=== PATIENT | male | born 1995 | race Caucasian/White ===

== ENCOUNTER 2016-12-20 06:46 | Day surgery (SDC) | payer BC ==
[~2016-12-20 06:46] MED LIST: Buffered Lidocaine 0.9% SYRIN* 5 ML/SYR SYRINGE INTRADERM ONE
[2016-12-20] MEDS ORDERED: Lidocaine 1.5% EPI 1:200,000* 30 ML SDV ONE (06:59)
[2016-12-20] MEDS ORDERED: ceFAZolin 2 GM PREMIX (*) 2 GM/50 ML BAG IVPB ONE (06:59)
[2016-12-20] MEDS ORDERED: Buffered Lidocaine 0.9% SYRIN* 5 ML/SYR SYRINGE ONE (06:59)
[2016-12-20] MEDS ORDERED: Dexamethasone IV* 4 MG/ML 1 ML (4 MG) ONE (07:57)
[2016-12-20] MEDS ORDERED: Propofol* 10 MG/ML 20 ML BTL IV PUSH ONE ×2 (07:57→10:55)
[2016-12-20] MEDS ORDERED: fentaNYL* 50 MCG/ML 2 ML VIAL (100 MCG VIAL) ONE ×5 (07:58→12:55)
[2016-12-20] MEDS ORDERED: Midazolam* 1 MG/ML 5 ML VIAL (5 MG) ONE (07:58)
[2016-12-20] MEDS ORDERED: Bupivacaine 0.5% SDV PF* 30 ML VIAL ONE (08:30)
[2016-12-20] MEDS ORDERED: DiMENhydriNATE IV* 50 MG/ML VIAL IV PUSH PRN (08:40)
[2016-12-20] MEDS ORDERED: oxyCODONE TAB* 5 MG TAB PO PRN (08:40)
[2016-12-20] MEDS ORDERED: Scopolamine 1.5 mg* PATCH TRANSDERM PRN (08:40)
[2016-12-20] MEDS ORDERED: Ondansetron INJ* 2 MG/ML VIAL IV PRN (08:40)
[2016-12-20] MEDS ORDERED: HYDROmorphone INJ* 1 MG/ML CARPUJECT SYRINGE IV PRN (08:40)
[2016-12-20] MEDS ORDERED: Ondansetron INJ* 2 MG/ML VIAL ONE (08:48)
[2016-12-20] MEDS ORDERED: Ketorolac INJ* 30 MG/ML 1 ML VIAL ONE (08:48)
[2016-12-20] MEDS ORDERED: oxyCODONE TAB* 5 MG TAB ONE (12:51)
[2016-12-20] MEDS: fentaNYL* 50 MCG/ML 2 ML VIAL (100 MCG VIAL) IV PRN ×2 (12:55→13:00)
[2016-12-20 12:59] VITALS: BP 152/84
--- NOTE | 2016-12-20 14:06 | RAD ---
INDICATION: Right ankle ORIF, S 82.61XD COMPARISONS: December 11, 2016 TECHNIQUE: Fluoroscopy was provided for a surgical procedure. Total fluoroscopy time is: 84.2 seconds FINDINGS: Spot images demonstrate internal fixation of the right ankle IMPRESSION: FLUOROSCOPY WAS PROVIDED FOR A SURGICAL PROCEDURE CPT II Codes: 6045F
--- NOTE | 2016-12-21 19:22 | OP ---
OPERATIVE REPORT: DATE OF OPERATION: 12/20/16 DATE OF : [birth year] SURGEON: Dat Panchal MD AQUATIC SCIENTIST: MAMI Limon A physician physical laboratory assistant was required for the length of the case for positioning, instrumentation, and retraction. ANESTHESIOLOGIST: Primo Crawford MD ANESTHESIA: General anesthesia, LMA and local anesthesia, 10 cc of 1:1 ratio of 1.5% lidocaine with epinephrine and 0.5% Marcaine without epinephrine. PRE-OP DIAGNOSES: 1. Right ankle lateral malleolus fracture. 2. Right ankle anterior tibiofibular ligament tear, possible syndesmotic instability. 3. Right ankle bony avulsion fracture, distal tip, including anterior talofibular ligament. 4. Demetrius fracture, posterior aspect, medial malleolus, right ankle. 5. Possible right ankle fracture dislocation. POST-OP DIAGNOSES: 1. Right ankle lateral malleolus fracture. 2. Right ankle anterior tibiofibular ligament tear with syndesmotic instability. 3. Right ankle bony avulsion fracture, distal tip, including anterior talofibular ligament. 4. Demetrius fracture, posterior aspect, medial malleolus, right ankle. 5. Possible right ankle fracture dislocation. OPERATIVE PROCEDURE: 1. Right ankle open reduction internal fixation lateral malleolus. 2. Right ankle open reduction internal fixation syndesmosis. 3. Right ankle repair of collateral ligament, specifically anterior talofibular ligament. 4. Removal of bony fragment, distal tip of lateral malleolus. ANTIBIOTICS: Ancef 2 g IV. IV FLUIDS: See anesthesia note. TOURNIQUET TIME: 120 minutes up, then 15 minutes down, then 44 minutes up at 300 mmHg. COMPLICATIONS: None. SPECIMEN: None. IMPLANTS: Synthes 10 hole one-third tubular plate filled with 3.5 mm cortical nonlocking screws and one 4.0 mm cancellous nonlocking screw. The cancellous nonlocking screw was the most distally placed through the plate. Across the fracture site, using lag technique were placed one 3.5 mm nonlocking screw and one 2.7 mm nonlocking screw. There was also a long 3.5 mm fully threaded screw , 60 mm in length that functioned as a syndesmotic screw. Also placed was a [employer] Gryphon double-loaded suture anchor in the distal tip of the lateral malleolus. 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 The patient sustained a twisting injury. There was obvious deformity to the ankle. I did not see this. An certified athletic trainer got to the villal[place] and reduced the ankle prior to my arrival on to the field. The certified athletic trainer described it as a fracture dislocation. Difficult to know for sure if it was a fracture dislocation or whether perhaps it was just a displaced ankle fracture. product trainer described it as a fracture dislocation. X-ray imaging demonstrated a Horton C fracture, comminuted, of the distal fibula. X- rays also demonstrated some likely instability of the syndesmosis, evidenced by medial clear space widening on gravity stress views in the office. Those gravity stress x-ray views also demonstrated a demetrius about the medial aspect of the ankle, likely representing a type of bony avulsion. Given the patient's high level of athletics, the severe energy involved with his injury, and the presence of that bony fracture fragment medially, I obtained an MRI scan of the right ankle. Right ankle MRI demonstrated a fracture of the lateral malleolus, distal fibula. It also demonstrated anterior tibiofibular ligament tear. It surprisingly did not show a deltoid ligament injury. It showed a small impaction fracture about the posterior aspect of the medial malleolus with a small demetrius of bone displaced that had been visible on x-ray. It provided more information, a greater clarity about a fracture fragment seen at the distal tip of the lateral malleolus on x-ray images. I had assumed that to be a chronic demetrius fragment from an old injury. However, radiologist read this as an acute injury. The fragment was long but thin, approximately 6 mm long from anterior to posterior. It appeared to be connected to the ATFL ligament and displaced anteriorly from a notch about the midpoint or even posterior on the lateral malleolus. Surprisingly, I did not see any bone edema about that fracture site , indicating possibly that this was a chronic injury sustained by the patient previously. The patient had had an ankle injury over the summer, twisted ankle that bothered him for a week. Patient opted for surgery. Patient had been placed into a splint in the emergency room and was eventually placed in a casting clinic with me with instructions to elevate the leg. Preoperatively, I detailed potential risks and complications of surgery including bleeding, infection, nerve or blood vessel injury, ankle pain, stiffness or arthritis, hardware complications. I discussed that likely the patient would need syndesmotic screws. I told him that I would take these out 10 weeks postoperatively. We discussed that not all syndesmotic screws are removed and that the literature has supported either removal or non-removal. I told him that it is my tendency to remove syndesmotic screws. Patient opted for surgery. DESCRIPTION OF PROCEDURE: Preoperative written consent. Operative extremity was marked in preoperative holding. The cast was bivalved in preoperative holding. A skin check showed wrinkling of medial and lateral ankle skin. Skin was intact. The hair about the skin incision laterally were shaved. The patient was brought back to the operating room and an LMA was placed with the patient in the supine position. A proximal thigh tourniquet was placed but not yet elevated. The right lower extremity was prepped with chlorhexidine and then ChloraPrep. Right lower extremity was draped. Surgical time was performed. Esmarch was applied and tourniquet was elevated to 300 mmHg. A lateral ankle approach skin incision was made, starting approximately 13 cm proximal with distal tip of the lateral malleolus and curving anteriorly distal to the distal tip of the lateral malleolus. Continued dissection through superficial subcutaneous tissue with a deep knife. I then continued my dissection with dissection scissors to bone. Fascia directly overlying bone and periosteum were incised longitudinally with a deep knife. I encountered fracture. Opened up fracture and debrided it with irrigation, rongeur and curette. There had been some shortening at the fracture site. Reduced fracture and placed 2 bone clamps to hold the main oblique fracture line in place. Using lag technique, placed a 3.5 mm fully threaded nonlocking screw from posterior to anterior. This held the reduction nicely. There was a butterfly fragment more proximally about the posterior aspect of the bone. This did not have to be done, but in order to hold the butterfly fragment nicely adjacent to bone and prevent it from being displaced posteriorly , I fixed this fragment using a 2.7 mm screw placed from anterior to posterior into the fragment. I did not use lag technique for this screw. I took several x-ray images using a C-arm showing excellent reduction. I then sized one-third tubular plates. I picked a 10-hole plate. I then contoured it appropriately. I placed it on the lateral aspect of the distal fibula and placed 1 nonlocking screw proximal and 1 distal to the fractures. I then brought C-arm images in and obtained AP mortise and lateral view showing excellent reduction of bone and excellent placement of hardware. I next placed 2 additional nonlocking screws proximal to the fractures. Then distal to the fracture, I placed a cancellous 4.0 mm screw in the distal most hole of the plate. I placed then 2 additional screws distal to the fracture site, 3.5 mm nonlocking. X-ray film showed excellent placement of hardware and reduction of the lateral malleolus fracture. I next determined the need for a syndesmosis screw. I performed external rotation stress test and cotton test. The cotton test more so than the external rotation stress test showed an increase in the tibiofibular clear space and a decrease in tibiofibular overlap. Medial clear space widening was less of a concern. Because of the change in tibiofibular clear space, I decided that at least 1 syndesmotic screw was required. Because the gaping was not too significant, I decided that 2 syndesmotic screws were not required. I had an physical laboratory assistant fully dorsiflex the ankle. I drilled and then placed a syndesmotic screw. I used the longest screw available, 60 mm, which was not quite as long as I had drilled. Images showed bone is well reduced and distal tip of the syndesmotic screw nicely central. I was happy with that screw placement. Cotton test and external rotation stress test with syndesmotic screw in place showed no significant increase in clear space changes. With my lateral malleolus and my syndesmosis open reduction internal fixations done, I next turned my attention to the demetrius fragments distally. The medial demetrius had been determined preoperatively to be present posterior, near the neurovascular bundle and tendons about the posterior aspect of the medial malleolus. I decided preoperatively that unless that bony fragment was particularly prominent by imaging intraop, I would not remove it. I saw it on a very few of my intraoperative images, x-ray. It did not seem intra-articular , and that it would be a problem based on preoperative MRI, so I decided not to remove it. With regards to the demetrius fragment distally, as the bony fragment was attached to the ATFL, I thought that this was worth repairing. It would be present at the distal end of my surgical incision. I continued my dissection slightly distal at the distal tip of the lateral malleolus. I isolated the demetrius fragment of bone. It was, as it had appeared on the MRI preoperatively long from anterior to posterior but not from superior to inferiorly. It appeared to be attached to a taut ligament anteriorly, the ATFL. I could reduce it to bone about the anterior aspect of the lateral malleolus. I used three #0 Vicryl or Ethibond stitches to put traction on the bony fragment and to reduce it; however, there did not seem anyway that it would reduce more posteriorly, where the defected bone had been visualized preoperatively. The CFL ligament was in place and prevented good visualization of the more posterior aspect of the distal lateral malleolar tip. I thought I might have seen a slight bit of the defect in the bone of the distal tip of the lateral malleolus, but it was not particularly well visualized. I tried mobilizing that bony fragment, but it was still clear that it would not be reducible to the posterior aspect of that tip. Also, the ATFL clearly typically originates more anteriorly on the lateral malleolus. Therefore, I decided to reduce the bony fragment and the ligament attached to it to the anterior aspect of the distal lateral malleolus. I roughened the bone at the distal tip of the lateral malleolus with an osteotome. I placed a [email or web address] Gryphon double-loaded suture anchor. When I went to place the suture from the suture anchor around the bony fragment , the bony fragment started to come apart from the ligament that it was attached to. It is clear that it was not attaching nicely to the ATFL and other ligaments. Therefore, it was removed. A small loose body was removed. I then using the sutures from the suture anchor, grabbed ligamentous structures, including part of the ATFL and placed horizontal mattress stitches repairing this to the lateral malleolus tip, performing a ligament repair. This was done after the joint had been irrigated well from this aspect in the ankle. No loose bodies were visualized inside the ankle joint. After the lateral ankle ligament had been repaired, closure was performed. It should be noted that tourniquet was dropped when 120 minutes of tourniquet time had been reached. The tourniquet was down for 15 minutes and then up for 44 minutes. Most of this case was spent working on the lateral ligament of the ankle, a technically difficult and delicate part of the procedure. Closure of fascia and periosteum overlying the distal fibula was performed using [id number] stitches of Vicryl 2-0 suture. This was an excellent closure and none of the bone was visualized after this closure had been performed. Subcutaneous tissue was then closed with buried simple stitches using Vicryl 3-0 suture. Closure of the skin with lul. Xeroform. 10 cc of local anesthetic, as described above, were injected in the subcutaneous tissue about the skin incision. 4x4's, sterile Webril, non-sterile Webril, posterior splint, and medial and lateral sugar tong. The patient was awakened and transferred to the PACU. The patient was to be discharged home when medically stable. Percocet for pain control, aspirin for DVT prophylaxis and Keflex for infection prophylaxis. The patient will follow up with me in clinic for a wound check in 10 to 14 days and x- rays. [id number]/[facility] #: [id number] ALIVIA
[2016-12-23] MEDS ORDERED: Scopolamine PATCH Remove* 1 NOTE MISC PATCH OFF ONE (08:40)
== END 2016-12-20 13:29 | disposition home or self-care (01) ==
LOC: OR 06:46
PROVIDERS: ATTEND Orthopaedic Surgery
DX: S82.61XA Displaced fracture of lateral malleolus of right fibula, initial encounter for closed fracture (principal); S93.431A Sprain of tibiofibular ligament of right ankle, initial encounter; S82.54XA Nondisplaced fracture of medial malleolus of right tibia, initial encounter for closed fracture; W50.2XXA Accidental twist by another person, initial encounter; Y93.61 Activity, american tackle football; Y92.321 Football field as the place of occurrence of the external cause
CPT/HCPCS: 76000; 76001; A9270-GY; C1713; C1776; J0690; J1100; J1885; J2250; J2405; J2704; J3010

== ENCOUNTER 2017-03-02 05:53 | Day surgery (SDC) | payer BC ==
[2017-03-02] MEDS ORDERED: ceFAZolin 2 GM PREMIX (*) 2 GM/50 ML BAG IVPB ONE (05:58)
[2017-03-02] MEDS ORDERED: Buffered Lidocaine 0.9% SYRIN* 5 ML/SYR SYRINGE ONE (05:58)
[2017-03-02] MEDS ORDERED: Famotidine IV* 10 MG/ML 2 ML (20 mg) ONE (05:58)
[2017-03-02] MEDS ORDERED: Dexamethasone IV* 4 MG/ML 1 ML (4 MG) ONE (05:58)
[2017-03-02] MEDS ORDERED: Famotidine IV* 10 MG/ML 2 ML (20 mg) IV ONE (06:00)
[2017-03-02] MEDS ORDERED: Dexamethasone IV* 4 MG/ML 1 ML (4 MG) IV SLOW PU ONE (06:00)
[2017-03-02] MEDS ORDERED: Midazolam* 1 MG/ML 10 ML VIAL (10 MG) ONE (07:16)
[2017-03-02] MEDS ORDERED: fentaNYL* 50 MCG/ML 2 ML VIAL (100 MCG VIAL) ONE (07:16)
[2017-03-02] MEDS ORDERED: Ketorolac INJ* 30 MG/ML 1 ML VIAL ONE (07:17)
[2017-03-02] MEDS ORDERED: Ondansetron INJ* 2 MG/ML VIAL ONE (07:17)
[2017-03-02] MEDS ORDERED: Propofol* 10 MG/ML 20 ML BTL IV PUSH ONE (07:17)
[2017-03-02] MEDS ORDERED: Lidocaine 2% PF * 5 ML VIAL ONE (07:17)
[2017-03-02] MEDS ORDERED: Bupivacaine 0.5% SDV PF* 10-30ML VIAL ONE (07:30)
[2017-03-02] MEDS ORDERED: Naloxone* 0.4 MG/ML 1 ML VIAL IV PRN (07:40)
[2017-03-02] MEDS ORDERED: oxyCODONE/Acetamin 5/325 MG* TAB PO PRN (07:40)
[2017-03-02] MEDS ORDERED: fentaNYL* 50 MCG/ML 2 ML VIAL (100 MCG VIAL) IV PRN (07:40)
[2017-03-02] MEDS ORDERED: Ondansetron INJ* 2 MG/ML VIAL IV PRN (07:40)
[2017-03-02 08:37] VITALS: BP 118/68
--- NOTE | 2017-03-02 16:16 | OP ---
OPERATIVE REPORT: DATE OF OPERATION: 03/02/17 DATE OF : [birth year] SURGEON: Dat Panchal MD LINUX SUPPORT ENGINEER: MAMI Washington A physician certified physician's assistant was required for the length of the procedure for positioning, retraction, instr umentation, and assistance with closure. ANESTHESIOLOGIST: Donny Senior MD ANESTHESIA: General anesthesia, local anesthesia. Local anesthesia used was 7 cc of 0.5% Marcaine w ithout epinephrine. PRE-OP DIAGNOSES: 1. Status post right ankle open reduction internal fixation of the lateral malleolus and syndesmosis with anterior talofibular ligament repair, 12/20/16, for a fracture dislocation. 2. Retained right ankle syndesmotic screw. POST-OP DIAGNOSES: 1. Status post right ankle open reduction internal fixation of the lateral malleolus and syndesmosis with anterior talofibular ligament repair, 12/20/16, for a fracture dislocation. 2. Retained right ankle syndesmotic screw. OPERATIVE PROCEDURE: 1. Removal of hardware, deep. 2. Examination under fluoroscopy, right ankle. 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 Procedure was performed on 12/20/16 including open reduction and internal fixation of lateral malleol us and syndesmosis with an ATFL ligament repair. I had spoken to the patient and his family even before that first operation about possible removal of syndesmotic screw. We had discussed benefits and risks of leaving this syndesmotic screw in place v ersus removing it postoperatively. We decided on removal of syndesmotic screw and I wanted the patie nt to wait at least 10 weeks postoperatively for removal of syndesmotic screw. We discussed risks and potential complications including bleeding, infection, nerve or blood vessel i njury, hardware breakage, ankle pain, stiffness, arthritis. We discussed specifically the possibilit y that if the syndesmotic screw were broken, we need to make a medial ankle incision to remove the ti p of the screw. ANTIBIOTICS: Ancef 2 g IV. IV FLUIDS: 700 cc crystalloid. COMPLICATIONS: None. SPECIMEN: One 3.5-mm fully threaded screw, that had been used as a syndesmosis screw. IMPLANTS: None. DESCRIPTION OF PROCEDURE: Preoperatively, written consent was signed. Operative extremity was marke d in preoperative holding. The patient was taken back to the operating room and placed supine on ope rating room table. The patient was slightly sedated. Tourniquet was placed about the right proximal thigh but never inflated. Right lower extremity was p repped with ChloraPrep and then draped. A bone foam was placed and a blanket bump under the right he mipelvis was placed. The right lower extremity was prepped and draped as mentioned above. Surgical time- out performed. Some local anesthetic, approximately 5 cc, was injected about the intended skin incision. This was d one after I had pulled in a mini C-arm, and used a freer instrument to gracie the level of the syndesmo tic screw with a marker on the skin. Then, I applied the local anesthetic subcutaneously. I had gracie ed the location of the syndesmotic screw with a marker and so I was able to make a very small incisio n, approximately 1 cm in size, longitudinal, in the former scar of former skin incision. Skin incisi on was made. The patient had been converted to general anesthesia. Using spreading dissection, I di ssected down to the plate. It was cleared of some tissue with a curette. Screw head was well visibl e. Screw identity was confirmed with a screw sprinkler driver and mini C-arm image. Screw was then removed. It came out 1 piece. I then used mini C-arm imaging to do several things. I confirmed that all of the screw had been christopher carmela. I also did some stress testing, and external rotation stress test. The medial clear space and the syndesmosis spaces did not open significantly. Therefore, I was comfortable with my having remov e the syndesmotic screw. Irrigation. Closure of the subcutaneous tissues with 1 stitch, buried simple in the subcutaneous tis luiza with Vicryl 2-0 suture. Closure of the skin with nylon 4-0 suture running stitch. Some additional local 2 cc for total of 7 cc was infiltrated. A Xeroform, 4x4, Luiz bandage. The patient was lightened of sedation. The patient was transferred to the PACU. DISPOSITION: I told the patient to remain in the boot for 3 days postoperatively and to maintain his dressing in place for 3 days postoperatively. He should keep that covered for 7 days postop. The p atient will follow up with me in 10 to 14 days in the clinic. [id number]/[facility] #: [id number]
--- NOTE | 2017-03-02 17:49 | RAD ---
CPT II Codes: 6045F INDICATION: Follow-up for hardware removal, traumatic fracture of the right ankle. Fluoroscopic services provided for referring physician. 3.5 seconds of fluoroscopy time was used. One spot image demonstrates metallic probe over the distal fibula. IMPRESSION: Fluoroscopic services provided for referring physician.
== END 2017-03-02 09:02 | disposition home or self-care (01) ==
LOC: OR 05:53
PROVIDERS: ATTEND Orthopaedic Surgery
DX: S82.61XD Displaced fracture of lateral malleolus of right fibula, subsequent encounter for closed fracture with routine healing (principal); W03.XXXD Other fall on same level due to collision with another person, subsequent encounter; Y92.321 Football field as the place of occurrence of the external cause
CPT/HCPCS: 76000; 88300; J0690; J1100; J1885; J2250; J2405; J2704; J3010